=== PATIENT | female | born 1985 | race Caucasian/White ===

== ENCOUNTER 2017-04-12 14:25 | Emergency (ER) | payer OTHER ==
[2017-04-12 15:16] LABS: RBC URINE 1 /hpf (0-3); URINE BILIRUBIN NEGATIVE (NEGATIVE); URINE BLOOD NEGATIVE (NEGATIVE); URINE COLOR Yellow (YELLOW); URINE GLUCOSE (UA) NORMAL (Normal); URINE KETONE NEGATIVE (NEGATIVE); URINE LEUKOCYTE ESTERASE TRACE Leu/uL (Negative); URINE PROTEIN NEGATIVE (NEGATIVE); URINE UROBILINOGEN NORMAL mg/dL (0.2-1.0); WBC URINE < 1 /hpf (0-5)
--- NOTE | 2017-04-12 15:58 | US ---
Indication: Abdominal pain, , rule out ectopic Comparison: None available. Technique: Transabdominal pelvic ultrasound Findings: The uterus measures approximately 8.6 x 4.8 x 6.6 cm. Anteverted. Cervix length measures approximately 2.6 cm. There is a single intrauterine fetus present. The gestational sac measures 1.6 cm and is compatible with a gestational age of 5 weeks 6 days. The crown-rump length measures 0.6 cm and is compatible with a gestational age of 6 weeks 2 days. There is heart motion which measured 120.8 BPM. The right ovary measures 2.6 x 1.5 x 2.9 cm. The left ovary measures 2.5 x 2.6 x 3.0 cm. 1.6 x 1.0 x 1.2 cm left ovarian cyst. Blood flow was demonstrated to both ovaries. Impression: Live single intrauterine with estimated gestational age 5 weeks 6 days by gestational sac calculation and 6 weeks 2 days by crown-rump length calculation. heart rate 120.8 bpm. Advise an anomaly screen at 16-18 weeks gestational age 1.6 cm left ovarian cyst.
--- NOTE | 2017-04-12 16:30 | C.PDOC ---
History Of Present Illness 31 year old female with no past medical history presents to the ED with complaints of lower abdominal tightness for one day. Patient states her LMP was 02/27/2017 and had a positive at home test. She denies nausea, vomiting, dysuria, or vaginal bleeding. Time Seen by Provider: 04/12/17 14:46 Chief Complaint (Nursing): Female Genitourinary History Per: Patient History/Exam Limitations: no limitations Onset/Duration Of Symptoms: Days (1 day ) Current Symptoms Are (Timing): Still Present Recent travel outside of the [place]: No Past Medical History Reviewed: Historical Data, Nursing Documentation, Vital Signs Vital Signs: Last Vital Signs Temp 98.2 F 04/12/17 16:50 Pulse 71 04/12/17 16:50 Resp 18 04/12/17 16:50 BP 124/72 04/12/17 16:50 Pulse Ox 98 04/12/17 16:50 Family History: States: Unknown Family Hx - Social History Hx Alcohol Use: No Hx Substance Use: No - Immunization History Hx Tetanus Toxoid Vaccination: No Hx Influenza Vaccination: No Hx Pneumococcal Vaccination: No Review Of Systems Except As Marked, All Systems Reviewed And Found Negative. Constitutional: Negative for: Fever Gastrointestinal: Negative for: Vomiting Genitourinary: Negative for: Vaginal Bleeding Physical Exam - Physical Exam Appears: Non-toxic, No Acute Distress Skin: Warm, Dry Head: Atraumatic, Normacephalic Eye(s): bilateral: PERRL, EOMI Oral Mucosa: Moist Neck: Normal ROM, Supple Chest: Symmetrical, No Deformity Cardiovascular: Rhythm Regular, No Murmur Respiratory: No Accessory Muscle Use, No Rales, No Rhonchi, No Wheezing Gastrointestinal/Abdominal: Soft, Tenderness (diffuse lower abdominal tenderness ), No Guarding, No Rebound, Other (No focal tenderness ) Back: No CVA Tenderness Extremity: Normal ROM, No Tenderness Neurological/Psych: Oriented x3 ED Course And Treatment O2 Sat by Pulse Oximetry: 100 (room air ) - CT Scan/US Transvaginal US Other Rad Studies (CT/US): Read By Radiologist, Radiology Report Reviewed CT/US Interpretation: Findings: The uterus measures approximately 8.6 x 4.8 x 6.6 cm. Anteverted. Cervix length measures approximately 2.6 cm. There is a single intrauterine fetus present. The gestational sac measures 1.6 cm and is compatible with a gestational age of 5 weeks 6 days. The crown-rump length measures 0.6 cm and is compatible with a gestational age of 6 weeks 2 days. There is heart motion which measured 120.8 BPM. The right ovary measures 2.6 x 1.5 x 2.9 cm. The left ovary measures 2.5 x 2.6 x 3.0 cm. 1.6 x 1.0 x 1.2 cm left ovarian cyst. Blood flow was demonstrated to both ovaries. Impression: Live single intrauterine with estimated gestational age 5 weeks 6 days by gestational sac calculation and 6 weeks 2 days by crown-rump length calculation. heart rate 120.8 bpm. Advise an anomaly screen at 16-18 weeks gestational age. 1.6 cm left ovarian cyst. Progress Note: UA and US were ordered. Disposition - Disposition Disposition: HOME/ ROUTINE Disposition Time: 16:29 Condition: GOOD Additional Instructions: Please follow up with your OBGYN doctor. Return to the ER for any worsening symptoms or for any other concerns. Forms: General Discharge Instructions, [facility] (Welsh) - Clinical Impression Clinical Impression: Abdominal pain in - Scribe Statement The provider has reviewed the documentation as recorded by the Scribe Anna Whyte All medical record entries made by the Scribe were at my direction and personally dictated by me. I have reviewed the chart and agree that the record accurately reflects my personal performance of the history, physical exam, medical decision making, and the department course for this patient. I have also personally directed, reviewed, and agree with the discharge instructions and disposition.
[2017-04-12 17:02] VITALS: BP 124/72; PULSE 71; RESP 18; TEMP 98.2
[2017-04-12 17:14] VITALS: O2SAT 100
== END 2017-04-12 16:55 | disposition home or self-care (01) ==
LOC: C.ER 14:25
DX: O26.891 Other specified pregnancy related conditions, first trimester (principal); R10.30 Lower abdominal pain, unspecified; Z3A.01 Less than 8 weeks gestation of pregnancy

== ENCOUNTER 2017-04-21 17:44 | Emergency (ER) | payer OTHER ==
[2017-04-21] MEDS ORDERED: Sodium Chloride 0.9% 1,000 ML IV ONE (19:32)
--- NOTE | 2017-04-21 19:32 | C.PDOC ---
History Of Present Illness Patient who is , P:0, presents to the ER with a complaint of abdominal pain since yesterday. Patient states after sneezing she had more pain and began having vaginal bleeding today. Denies fever or chills. Time Seen by Provider: 04/21/17 19:32 Chief Complaint (Nursing): Female Genitourinary History Per: Patient History/Exam Limitations: no limitations Onset/Duration Of Symptoms: Days Current Symptoms Are (Timing): Still Present Severity: Mild Pain Scale Rating Of: 4 Quality Of Discomfort: Unable To Describe Associated Symptoms: Other (Vaginal bleeding). denies: Fever, Chills Alleviating Factors: None Recent travel outside of the [place]: No Abnormal Vaginal Bleeding: Yes : 2 Para: 0 Past Medical History Reviewed: Historical Data, Nursing Documentation, Vital Signs Vital Signs: Last Vital Signs Temp 98.6 F 04/21/17 20:45 Pulse 65 04/21/17 20:45 Resp 18 04/21/17 20:45 BP 107/71 04/21/17 20:45 Pulse Ox 100 04/21/17 20:45 - Medical History PMH: No Chronic Diseases Surgical History: No Surg Hx Family History: States: No Known Family Hx - Social History Hx Alcohol Use: No Hx Substance Use: No - Immunization History Hx Tetanus Toxoid Vaccination: No Hx Influenza Vaccination: No Hx Pneumococcal Vaccination: No Review Of Systems Constitutional: Negative for: Fever, Chills Gastrointestinal: Positive for: Abdominal Pain Genitourinary: Positive for: Vaginal Bleeding Physical Exam - Physical Exam Appears: Non-toxic Skin: Warm, Dry Eye(s): bilateral: Normal Inspection Oral Mucosa: Moist Neck: Supple Chest: Symmetrical, No Tenderness Cardiovascular: Rhythm Regular Respiratory: No Rales, No Rhonchi, No Wheezing Gastrointestinal/Abdominal: Soft, Tenderness (Mild suprapubic) Back: No CVA Tenderness Extremity: Bilateral: Atraumatic Neurological/Psych: Oriented x3, Normal Speech Gait: Steady ED Course And Treatment - Laboratory Results Result Diagrams: 04/21/17 20:18 04/21/17 20:18 O2 Sat by Pulse Oximetry: 100 (Room air) Pulse Ox Interpretation: Normal Progress Note: Blood work, urinalysis, and pelvic US ordered. IV fluids administered. Reevaluation Time: 22:24 Reassessment Condition: Improved Disposition Counseled Patient/Family Regarding: Studies Performed, Diagnosis, Need For Followup - Disposition Referrals: [facility] [Outside] [facility] [Outside] Disposition: HOME/ ROUTINE Disposition Time: 19:32 Condition: FAIR Additional Instructions: please follow up with your clinical manager and have your hcg level rechecked in 5-7 days Prescriptions: Nitrofurantoin Macrocrystals [Macrobid] 1 cap PO BID #14 cap Instructions: Spontaneous Miscarriage (ED), Urinary Tract Infection in (ED) Forms: [facility] ([place]an) - Clinical Impression Clinical Impression: Spontaneous , UTI (urinary tract infection) - Scribe Statement The provider has reviewed the documentation as recorded by the Scribe Jh Fishman All medical record entries made by the Scribe were at my direction and personally dictated by me. I have reviewed the chart and agree that the record accurately reflects my personal performance of the history, physical exam, medical decision making, and the department course for this patient. I have also personally directed, reviewed, and agree with the discharge instructions and disposition.
[2017-04-21 20:31] LABS: RBC URINE 730 /hpf (0-3); URINE BACTERIA OCC (<OCC); URINE BILIRUBIN NEGATIVE (NEGATIVE); URINE BLOOD 3+ (NEGATIVE); URINE COLOR Yellow (YELLOW); URINE GLUCOSE (UA) NORMAL (Normal); URINE KETONE NEGATIVE (NEGATIVE); URINE LEUKOCYTE ESTERASE 1+ Leu/uL (Negative); URINE PROTEIN 1+ mg/dL (NEGATIVE); URINE UROBILINOGEN NORMAL mg/dL (0.2-1.0); WBC URINE 10 /hpf (0-5)
[2017-04-21 20:33] LABS: CHLORIDE 96 mmol/L (98-107); POTASSIUM 4.1 mmol/L (3.6-5.2); SODIUM 135 mmol/L (132-148)
[2017-04-21 20:35] LABS: BILIRUBIN,TOTAL 0.6 mg/dL (0.2-1.3); CARBON DIOXIDE 23 mmol/L (22-30); GFR AFRICAN-AMERICAN > 60
[2017-04-21 20:36] LABS: ALB/GLOB RATIO 1.3 (1.0-2.1); ALKALINE PHOSPHATASE 72 U/L (38-126); ALT/SGPT 32 U/L (9-52); AST/SGOT 21 U/L (14-36); BLOOD UREA NITROGEN 4 mg/dL (7-17); CALCIUM 9.5 mg/dl (8.6-10.4); GLUCOSE,RANDOM 82 mg/dL (65-105); TOTAL PROTEIN 7.7 g/dL (6.3-8.3)
[2017-04-21 20:43] LABS: BASO # 0.1 K/uL (0.0-0.2); BASO % 0.8 % (0.0-2.0); EOS # 0.1 K/uL (0.0-0.7); EOS % 0.8 % (0.0-4.0); HEMATOCRIT 37.6 % (34.0-47.0); LYMPH # 2.1 K/uL (1.0-4.3); LYMPH % 20.1 % (20.0-40.0); MEAN CELL VOLUME 80.8 fL (81.0-99.0); MEAN CORPUSCULAR HEMOGLOBIN 26.9 pg (27.0-31.0); MEAN CORPUSCULAR HGB CONC 33.3 g/dL (33.0-37.0); MEAN PLATELET VOLUME 11.6 fL (7.2-11.7); MONO # 0.6 K/uL (0.0-0.8); MONO % 5.9 % (0.0-10.0); RED CELL DISTRIBUTION WIDTH 14.3 % (11.5-14.5); WHITE BLOOD COUNT 10.6 K/uL (4.8-10.8)
[2017-04-21 20:53] LABS: INR 1.1
[2017-04-21 20:57] VITALS: RESP 18
--- NOTE | 2017-04-21 22:19 | US ---
EXAM: US CLINICAL HISTORY: 31 years old, female; Pain; complicated by abdominal or pelvic pain and other: Vag bleed; Lower; First trimester; Gestational age or lmp: 8-6-17; TECHNIQUE: Real-time transvaginal obstetrical ultrasound of the maternal pelvis and a first trimester with image documentation. COMPARISON: No relevant prior studies available. FINDINGS: Uterus: No intrauterine gestational sac is seen. Endometrium appears thickened and heterogeneous measuring 1.7 cm. No mass is identified. Adnexa: Doppler evaluation reveals vascular flow in both ovaries. 1.4 cm follicle/cyst the left ovary. Free fluid: None. IMPRESSION: Endometrium appears thickened and heterogeneous measuring 1.7 cm. No intrauterine visualized. 1.4 cm follicle/cyst the left ovary. Followup imaging and beta hCG until beta-hCG 0 recommended.
[2017-04-21 22:39] VITALS: BP 105/68; PULSE 75; TEMP 97.9; O2SAT 95
== END 2017-04-21 22:41 | disposition home or self-care (01) ==
LOC: C.ER 17:44
DX: O03.9 Complete or unspecified spontaneous abortion without complication (principal); O07.3 Failed attempted termination of pregnancy with other and unspecified complications
CPT/HCPCS: 76805; 76817; 80053; 81001; 84702; 85025; 85610; 85730; 86850; 86900; 96360; 99285; J7040